=== PATIENT | female | born 1960 | race African-American/Black ===

== ENCOUNTER 2021-11-04 11:06 | Emergency (ER) | payer MEDICAID ==
[~2021-11-04] VITALS: Ht 157.5 cm; Wt 100.0 kg
[2021-11-04 11:26] VITALS: BP 136/71
[2021-11-04] MEDS ORDERED: CEPH500T MT (13:53)
[2021-11-04] MEDS ORDERED: SULF1TAB48 MT (13:53)
== END 2021-11-04 14:37 | disposition home or self-care (01) ==
LOC: ER 11:06
DX: M79.644 Pain in right finger(s) (principal); I10 Essential (primary) hypertension; Z98.890 Other specified postprocedural states; W01.0XXA Fall on same level from slipping, tripping and stumbling without subsequent striking against object, initial encounter; Y93.89 Activity, other specified; Y92.89 Other specified places as the place of occurrence of the external cause; Y99.8 Other external cause status
CPT/HCPCS: 73130; 99283